=== PATIENT | female | born 1950 | race Caucasian/White ===

== ENCOUNTER 2018-05-08 07:53 | Inpatient (IN) | payer MEDICARE, MEDICAID ==
[~2018-05-08] VITALS: Ht 160 cm; Wt 77.6 kg
[~2018-05-08 07:53] MED LIST: ALKA-SELTZER PO; ATOR10TA69 PO; ENAL10TA PO; IBUP-2028 PO; METF-415 PO
[2018-05-08] MEDS ORDERED: BUPIVACAINE HCL/DEXTROSE/PF 0.75% 2ML AMP INJ ONE (08:30)
[2018-05-08] MEDS ORDERED: TRANEXAMIC ACID 1,000 MG in SODIUM CHLORIDE 0.9% 100 ML IV NR ×2 (08:30→08:45)
[2018-05-08 09:11] LABS: HEMATOCRIT 35.3 % (36.0-48.0); HEMOGLOBIN 11.4 g/dL (12.0-16.0); MEAN CORPUSCULAR HEMOGLOBIN 26.3 pg (28.0-32.0); MEAN CORPUSCULAR VOLUME 81.5 fL (81.0-99.0); PLATELET 243 x1000/uL (130-400); RED BLOOD CELL COUNT 4.34 mill/uL (4.2-5.4); RED CELL DISTRIBUTION WIDTH 14.5 % (11.6-14.6)
[2018-05-08 09:15] LABS: CHLORIDE 104 mEq/L (98-107)
[2018-05-08] MEDS ORDERED: ALBU18HF2 IH (11:43)
[2018-05-08] MEDS ORDERED: METHYLENE BLUE 50 MG/10 ML AMP IV ONE (12:53)
[2018-05-08] MEDS ORDERED: BUPIVACAINE/EPINEPH/PF 0.25%/0.0005 10ML ONE (12:53)
[2018-05-08] MEDS ORDERED: MORPHINE SULFATE/PF 1MG/ML 10ML AMP ONE (12:54)
[2018-05-08] MEDS ORDERED: BACITRACIN 50,000 UNITS/VIAL ONE (12:54)
[2018-05-08] MEDS ORDERED: EPINEPHRINE 1:1000 1 MG/ML AMP ONE (12:54)
[2018-05-08] MEDS ORDERED: GENTAMICIN SULF 40MG/ML 2ML VIAL ONE (12:54)
[2018-05-08] MEDS ORDERED: NORMAL SALINE 0.9% 10 ML SYR ONE (12:55)
[2018-05-08] MEDS ORDERED: VANCOMYCIN HCL 500 MG/VIAL ONE (13:04)
[2018-05-08] MEDS ORDERED: ROPIVACAINE HCL 10MG/ML 20 ML VIAL EPI ONE (13:29)
[2018-05-08] MEDS ORDERED: FENTANYL CITRATE/PF 50MCG/ML 2ML VIAL ONE ×2 (13:36→16:36)
[2018-05-08] MEDS ORDERED: PROPOFOL 200MG/20ML VIAL IV ONE (13:37)
[2018-05-08] MEDS ORDERED: ROCURONIUM BROMIDE 10MG/ML VIAL 5ML IV ONE (13:37)
[2018-05-08] MEDS ORDERED: NEOSTIGMINE METHYLSULFATE 1MG/ML 10 ML VIAL ONE (13:37)
[2018-05-08] MEDS ORDERED: ONDANSETRON HCL 4MG/2ML INJ ONE (13:38)
[2018-05-08] MEDS ORDERED: PHENYLEPHRINE HCL 10 MG/ML 1ML (IV VIAL) IV ONE (13:38)
[2018-05-08] MEDS ORDERED: EPHEDRINE SULFATE 50MG/ML VIAL ONE (13:38)
[2018-05-08] MEDS ORDERED: METOCLOPRAMIDE HCL 10MG/2ML VIAL ONE (13:38)
[2018-05-08] MEDS ORDERED: MIDAZOLAM HCL 2 MG/2 ML VIAL ONE (13:38)
[2018-05-08] MEDS ORDERED: SODIUM CHLORIDE 0.9% 10ML VIAL ONE (13:38)
[2018-05-08] MEDS ORDERED: GLYCOPYRROLATE 0.2 MG/ML 2ML VIAL ONE (13:38)
[2018-05-08] MEDS ORDERED: LIDOCAINE HCL/PF 1% 10 MG/ML 5ML VIAL ONE (13:38)
[2018-05-08] MEDS ORDERED: SUCCINYLCHOLINE CHLORIDE 200MG/10ML IV ONE (13:38)
[2018-05-08] MEDS ORDERED: MEPERIDINE HCL/PF 25MG/ML CPJ IV PRN (15:15)
[2018-05-08] MEDS ORDERED: ONDANSETRON HCL 4MG/2ML INJ IV PRN (15:15)
[2018-05-08] MEDS ORDERED: SODIUM CHLORIDE 0.9% 1,000 ML IV ONE (16:15)
[2018-05-08 16:57] LABS: CLARITY URINE CLOUDY (CLEAR); COLOR URINE YELLOW (YELLOW); KETONES URINE NEGATIVE (NEGATIVE); LEUKOCYTE ESTERASE URINE TRACE (NEGATIVE); NITRITE URINE NEGATIVE (NEGATIVE); OCCULT BLOOD URINE NEGATIVE (NEGATIVE); PROTEIN URINE NEGATIVE (NEGATIVE); SPECIFIC GRAVITY URINE 1.015 (1.005-1.030); UROBILINOGEN URINE 0.2 E.U./dL (0.2-1.0)
[2018-05-08] MEDS ORDERED: ZOLPIDEM TARTRATE 5MG TABLET PO PRN (17:15)
[2018-05-08] MEDS ORDERED: MORPHINE SULFATE 4 MG/ML CPJ (NOT FOR IM USE) IV PRN (17:15)
[2018-05-08] MEDS ORDERED: ACETAMINOPHEN 325MG TABLET PO PRN (17:15)
[2018-05-08] MEDS ORDERED: HYDROCODONE/ACETAMINOPHEN 5/325MG TABLET PO PRN ×2 (17:15)
[2018-05-08] MEDS ORDERED: MAGNESIUM HYDROXIDE 400MG/5ML 30ML UDC PO PRN (17:15)
[2018-05-08] MEDS: HYDROMORPHONE HCL/PF 2MG/ML CPJ IV PRN ×3 (17:22→19:33)
[2018-05-08 20:30] VITALS: BP 133/76
[2018-05-08] MEDS ORDERED: CLINDAMYCIN 900 MG in DEXTROSE 5% WATER 50 ML IV SCH (23:00)
[2018-05-09] VITALS (7 sets, daily range): BP systolic 105–131; BP diastolic 34–63
[2018-05-09] MEDS: MORPHINE SULFATE 4 MG/ML CPJ (NOT FOR IM USE) IV PRN ×2 (06:19→13:11)
[2018-05-09] MEDS ORDERED: CLINDAMYCIN 900 MG in DEXTROSE 5% WATER 50 ML IV SCH ×2 (08:00→10:30)
[2018-05-09 08:10] LABS: BASOPHILS % 0.5 % (0.0-2.0); EOSINOPHILS % 0.3 % (0.0-5.0); HEMATOCRIT. 32.6 % (36.0-48.0); HEMOGLOBIN. 10.5 g/dL (12.0-16.0); LYMPHOCYTES % 7.7 % (20.0-50.0); MEAN CORPUSCULAR VOLUME 83.3 fL (81.0-99.0); MEAN PLATELET VOLUME 8.4 fl (7.4-10.4); MONOCYTES % 8.7 % (2.0-8.0); NEUTROPHILS % 82.8 % (40.0-76.0); PLATELET 209 x1000/uL (130-400); RED BLOOD CELL COUNT 3.91 mill/uL (4.2-5.4); RED CELL DISTRIBUTION WIDTH 14.5 % (11.6-14.6)
[2018-05-09 08:29] LABS: CHLORIDE 105 mEq/L (98-107)
[2018-05-09 08:45] LABS: PHOSPHORUS 3.1 mg/dL (2.5-4.9)
[2018-05-09] MEDS ORDERED: DOCUSATE SODIUM 100MG CAPSULE PO SCH (09:00)
[2018-05-09] MEDS: INSULIN LISPRO 100 UNITS/ML SUBCUT SCH ×4 (09:00→20:23)
[2018-05-09] MEDS ORDERED: DEXTROSE 50% WATER 50ML SYRINGE IV PRN (09:00)
[2018-05-09] MEDS: DOCUSATE SODIUM 100MG CAPSULE PO SCH ×2 (09:37→18:17)
[2018-05-09] MEDS: FERROUS SULFATE 325MG TABLET PO SCH ×3 (09:37→18:17)
[2018-05-09] MEDS: ENOXAPARIN 30MG/0.3ML SYR SUBCUT SCH ×2 (09:38→20:17)
[2018-05-09] MEDS: BLOOD SUGAR DIAGNOSTIC STRIP TEST SCH ×4 (09:43→20:23)
[2018-05-09] MEDS ORDERED: MAGNESIUM SULFATE 2 GM in DEXTROSE 5% WATER 50 ML IV NR (10:00)
[2018-05-09] MEDS ORDERED: IPRATROPIUM/ALBUTEROL 0.5-3(2.5)MG/3ML NEB HHN PRN (12:30)
[2018-05-09] MEDS ORDERED: ATORVASTATIN CALCIUM 10MG TABLET PO SCH (21:00)
[2018-05-10] VITALS: BP 125/55
[2018-05-10 04:00] VITALS: BP 151/64
[2018-05-10] MEDS: BLOOD SUGAR DIAGNOSTIC STRIP TEST SCH ×3 (06:33→17:24)
[2018-05-10] MEDS: FERROUS SULFATE 325MG TABLET PO SCH ×3 (06:50→17:21)
[2018-05-10 07:29] LABS: HEMATOCRIT. 29.3 % (36.0-48.0); HEMOGLOBIN. 9.8 g/dL (12.0-16.0); MEAN CORPUSCULAR HEMOGLOBIN 26.8 pg (28.0-32.0); MEAN CORPUSCULAR VOLUME 80.1 fL (81.0-99.0); MEAN PLATELET VOLUME 8.5 fl (7.4-10.4); PLATELET 200 x1000/uL (130-400); RED BLOOD CELL COUNT 3.65 mill/uL (4.2-5.4); RED CELL DISTRIBUTION WIDTH 14.5 % (11.6-14.6)
[2018-05-10 07:37] LABS: CHLORIDE 101 mEq/L (98-107)
[2018-05-10] MEDS: INSULIN LISPRO 100 UNITS/ML SUBCUT SCH ×3 (07:50→17:25)
[2018-05-10] MEDS: DOCUSATE SODIUM 100MG CAPSULE PO SCH ×2 (08:23→17:21)
[2018-05-10] MEDS: ENOXAPARIN 30MG/0.3ML SYR SUBCUT SCH (08:24)
[2018-05-10 09:06] LABS: PLATELET ESTIMATE NORMAL
[2018-05-10 17:42] VITALS: BP 110/61
== END 2018-05-10 18:50 | disposition home health service (06) | DRG 470 ==
LOC: OR 07:53 → EDSTATUS 13:30 → 6EST 21:51
PROVIDERS: ADMIT Internal Medicine; ATTEND Internal Medicine
PROC: 0SRC0J9 Replacement of Right Knee Joint with Synthetic Substitute, Cemented, Open Approach (ICD-10-PCS; principal; 2018-05-08 13:30)
DX: M17.11 Unilateral primary osteoarthritis, right knee (principal); I10 Essential (primary) hypertension; E11.9 Type 2 diabetes mellitus without complications; J45.909 Unspecified asthma, uncomplicated; E83.42 Hypomagnesemia; E78.5 Hyperlipidemia, unspecified; G89.29 Other chronic pain; D64.9 Anemia, unspecified; M65.9 Synovitis and tenosynovitis, unspecified; Z96.652 Presence of left artificial knee joint; Z88.0 Allergy status to penicillin; Z90.710 Acquired absence of both cervix and uterus; Z91.048 Other nonmedicinal substance allergy status; Z79.899 Other long term (current) drug therapy; Z79.84 Long term (current) use of oral hypoglycemic drugs
CPT/HCPCS: 36415; 73560; 80048; 82962; 83735; 84100; 85027; 88305; 88311; 97110; 97116; 97162; 97166; 97530; 97535; A4216; C1713; C1776; J0171; J0330; J1170; J1580; J1650; J2250; J2270; J2274; J2370; J2405; J2704; J2710; J2765; J2795; J3010; J3370; J3475; J3490; J7030; J7050; J7060; J7120; L1830; Q9968

== ENCOUNTER 2018-05-23 11:30 | Emergency (ER) | payer MEDICARE, MEDICAID ==
[~2018-05-23] VITALS: Ht 160 cm; Wt 75.0 kg
[~2018-05-23 11:30] MED LIST changes: +ALBU18HF2 IH
[2018-05-23 12:39] LABS: BASOPHILS % 0.9 % (0.0-2.0); EOSINOPHILS % 4.3 % (0.0-5.0); HEMATOCRIT. 31.4 % (36.0-48.0); HEMOGLOBIN. 10.4 g/dL (12.0-16.0); LYMPHOCYTES % 10.6 % (20.0-50.0); MEAN CORPUSCULAR HEMOGLOBIN 26.9 pg (28.0-32.0); MEAN CORPUSCULAR VOLUME 81.2 fL (81.0-99.0); MEAN PLATELET VOLUME 7.6 fl (7.4-10.4); NEUTROPHILS % 79.2 % (40.0-76.0); PLATELET 533 x1000/uL (130-400); RED BLOOD CELL COUNT 3.86 mill/uL (4.2-5.4); RED CELL DISTRIBUTION WIDTH 14.2 % (11.6-14.6)
[2018-05-23 12:47] LABS: CHLORIDE 99 mEq/L (98-107)
[2018-05-23 13:07] LABS: D-DIMER 18.38 mg/L FEU (<0.50); PARTIAL THROMBOPLASTIN TIME 27.3 sec (23.4-31.0); PROTHROMBIN TIME 10.3 sec (9.1-11.1)
[2018-05-23 15:37] LABS: CLARITY URINE CLEAR (CLEAR); COLOR URINE YELLOW (YELLOW); KETONES URINE TRACE (NEGATIVE); LEUKOCYTE ESTERASE URINE NEGATIVE (NEGATIVE); NITRITE URINE NEGATIVE (NEGATIVE); OCCULT BLOOD URINE NEGATIVE (NEGATIVE); PROTEIN URINE NEGATIVE (NEGATIVE); SPECIFIC GRAVITY URINE 1.019 (1.005-1.030); UROBILINOGEN URINE 0.2 E.U./dL (0.2-1.0)
[2018-05-23 18:11] VITALS: BP 131/59
== END 2018-05-23 18:24 | disposition home or self-care (01) ==
LOC: ER 11:56
DX: M25.561 Pain in right knee (principal); E11.9 Type 2 diabetes mellitus without complications; E78.00 Pure hypercholesterolemia, unspecified; I10 Essential (primary) hypertension; Z88.0 Allergy status to penicillin; Z90.49 Acquired absence of other specified parts of digestive tract; Z90.710 Acquired absence of both cervix and uterus
CPT/HCPCS: 36415; 84484; 85379; 93970; 99285